=== PATIENT | female | born 1965 | race African-American/Black ===

== ENCOUNTER 2018-06-15 18:37 | Emergency (ER) | payer SELFPAY ==
[~2018-06-15] VITALS: Ht 167.6 cm; Wt 77.1 kg
[2018-06-15] MEDS ORDERED: Norco 5mg/325mg tab ORAL ONE (18:45)
--- NOTE | 2018-06-15 20:24 | Emergency Room Report ---
History of Present Illness General Chief Complaint: Lower Extremity Injury Source: Patient, EMS Present Illness HPI 52-year-old female presents to the emergency department complaining of 8 out of 10 in severity pain in the right foot and ankle status post large metal display rack falling on her foot while at a store. Patient reports pain is exacerbated upon standing and walking. Patient reports swelling and bruising. She denies history of previous injury to this extremity. Denies numbness tingling or loss of sensation or gross motor movements of the extremities. Denies weakness. Allergies: Coded Allergies: No Known Allergies (Unverified , 06/15/18) Patient History Past Medical History: see triage record Past Surgical History: none Pertinent Family History: none Last Menstrual Period: na Now: No Nursing Documentation-[facility] Past Medical History: No History, Except For Hx Cardiac Problems: Yes - heart murmur Hx Hypertension: Yes Review of Systems All Other Systems: negative except mentioned in HPI Physical Exam Vital Signs Date Time Temp Pulse Resp B/P (MAP) Pulse Ox O2 Delivery O2 Flow Rate FiO2 06/15/18 18:32 70 18 158/95 99 Sp02 EP Interpretation: reviewed, normal General Appearance: no apparent distress, alert, GCS 15, non-toxic Head: normocephalic, atraumatic ENT: hearing grossly normal, normal voice Neck: full range of motion Respiratory: lungs clear, normal breath sounds, speaking full sentences Cardiovascular #1: regular rate, rhythm, normal capillary refill Cardiovascular #2: 2+ dorsalis pedis (R) Musculoskeletal: back normal, normal range of motion, swelling - right lateral ankle and dorsum of foot, bruising noted in both areas. , tender - right lateral ankle and dorsum of foot Neurologic: alert, oriented x3, responsive, motor strength/tone normal, sensory intact, speech normal, grossly normal Psychiatric: judgement/insight normal Skin: no rash, warm/dry, well hydrated, other - bruising noted on right lateral ankle and dorsum of foot Medical Decision Making PA Attestation Dr. bender is my supervising Physician whom patient management has been discussed with. Diagnostic Impression: Primary Impression: Contusion, foot Qualified Codes: S90.31XA - Contusion of right foot, initial encounter Additional Impression: Right ankle sprain Qualified Codes: S93.401A - Sprain of unspecified ligament of right ankle, initial encounter ER Course 52-year-old female presents to the emergency department complaining of 8 out of 10 in severity pain in the right foot and ankle status post large metal display rack falling on her foot while at a store. Patient reports pain is exacerbated upon standing and walking. Patient reports swelling and bruising. She denies history of previous injury to this extremity. Denies numbness tingling or loss of sensation or gross motor movements of the extremities. Denies weakness. Ddx considered but are not limited to Fracture, dislocation, contusion, Sprain/ Strain/Spasm. Vital signs: are WNL, pt. is afebrile H&PE are most consistent with musculoskeletal injury will perform imaging to r/ o fractures/dislocations. ORDERS: - X-ray Right Foot & Ankle 3 views each - negative for fx, Dislocation, or significant soft tissue injury, per preliminary read in ED, and signed by JANINE Jc, my supervising physician has reviewed, and agrees with my interpretation. ED INTERVENTIONS: - [place] PO DISCHARGE: At this time pt. is stable for d/c to home. Will provide printed patient care instructions, and any necessary prescriptions. Care plan and follow up instructions have been discussed with the patient prior to discharge. Other X-Ray Diagnostic Results Other X-Ray Diagnostic Results #1: X-Ray ordered: Right Foot # of Views/Limited Vs Complete: 3 View Indication: Pain EP Interpretation: Yes JANINE Xray: Interpretation reviewed, by supervising MD, and agrees with findings. Interpretation: no dislocation, no soft tissue swelling, no fractures Impression: No acute disease Electronically Signed by: Daisha Jc PA-C Other X-Ray Diagnostic Results #2: X-Ray ordered: Right Ankle # of Views/Limited Vs Complete: 3 View Indication: Pain EP Interpretation: Yes JANINE Xray: Interpretation reviewed, by supervising MD, and agrees with findings. Interpretation: no dislocation, no soft tissue swelling, no fractures Impression: No acute disease Electronically Signed by: Daisha Jc PA-C Last Vital Signs Date Time Temp Pulse Resp B/P (MAP) Pulse Ox O2 Delivery O2 Flow Rate FiO2 06/15/18 18:32 70 18 158/95 99 Disposition: HOME, SELF-CARE Condition: Stable Scripts Ibuprofen* (MOTRIN*) 600 Mg Tablet 600 MG ORAL THREE TIMES A DAY, #30 TAB 0 Refills Prov: Daisha Jc 06/15/18 Referrals: NOT CHOSEN IPA/,REFERRING (PCP) Patient Instructions: Ankle Sprain, Foot Contusion Additional Instructions: Take medications as directed. Follow up with a Primary Care Provider in 3-5 days, even if your symptoms have resolved. --Please review list of primary care clinics, if you do not already have a primary care provider Return sooner to ED if new symptoms occur, or current symptoms become worse. - Please note that this Emergency Department Report was dictated using Neituipartition setter technology software, occasionally this can lead to erroneous entry secondary to interpretation by the dictation equipment. Daisha Jc Jun 15, 2018 20:24
[2018-06-15] MEDS ORDERED: IBUPROFEN600 MG ORAL (20:25)
[2018-06-15 20:39] VITALS: BP 160/102
--- NOTE | 2018-06-16 12:10 | Diagnostic Imaging Report ---
Indication: Pain Technique: XRAY Foot Complete R Comparison: None Findings: No acute fracture or dislocation is identified. Mild degenerative change at the first metacarpal phalangeal joint. Otherwise alignment and joint spaces preserved. No radiopaque foreign body identified. Impression: No acute fracture or dislocation.
--- NOTE | 2018-06-16 12:11 | Diagnostic Imaging Report ---
Indication: Pain Technique: XRAY Ankle Compl Min 3v R Comparison: None Findings: No acute fracture. Ankle mortise intact on these nonstress views. Imaged bone hindfoot grossly unremarkable. No appreciable ankle joint effusion. No radiopaque foreign body seen. Impression: No acute fracture or dislocation.
== END 2018-06-15 20:40 | disposition home or self-care (01) ==
LOC: EDBD 18:37 → EMR 19:38
DX: S90.31XA Contusion of right foot, initial encounter (principal); S93.401A Sprain of unspecified ligament of right ankle, initial encounter; W20.8XXA Other cause of strike by thrown, projected or falling object, initial encounter; Y92.512 Supermarket, store or market as the place of occurrence of the external cause; I10 Essential (primary) hypertension
CPT/HCPCS: 99284